=== PATIENT | female | born 1960 | race Caucasian/White ===

== ENCOUNTER 2017-09-12 09:02 | Outpatient (CLI) | payer OTHER | END 2017-09-12 09:03 | disposition home or self-care (01) | LOC: CTENTCT 09:02 | PROVIDERS: ATTEND Otolaryngology Plastic Surgery within the Head & Neck | DX: J32.9 Chronic sinusitis, unspecified (principal) | CPT/HCPCS: 70486 ==

== ENCOUNTER 2018-01-21 12:42 | Outpatient (CLI) | payer OTHER ==
--- NOTE | 2018-01-21 14:28 | RAD ---
CERVICAL SPINE THREE VIEWS: HISTORY: A 57-year-old female with a history of chronic pain syndrome. Prior neck surgery in 2013. Pain has gotten worse since surgery. FINDINGS: Anterior and posterior cervical fusion changes are noted from C5, C6, C7, and T1. No significant mal alignment. C2 odontoid and C1 are obscured on the AP open-mouth view. Some generalized changes of s pondylosis involving the nonsurgical segments. No prevertebral soft tissue swelling. IMPRESSION: Extensive anterior and posterior fusion changes involving C5 through T1, stable from prior study. POS: RHIANNON
== END 2018-01-21 12:43 | disposition home or self-care (01) ==
LOC: SCSRAD 12:42
PROVIDERS: ATTEND Psychiatry & Neurology Neurology
DX: G89.4 Chronic pain syndrome (principal); Z98.1 Arthrodesis status
CPT/HCPCS: 72040

== ENCOUNTER 2018-09-02 09:30 | Outpatient (CLI) | payer OTHER ==
--- NOTE | 2018-09-02 15:45 | MMO ---
BILATERAL SCREENING MAMMOGRAM: Date: 09/02/18 INDICATION: Annual exam. COMPARISON: Prior exam dated 02/28/16 and 05/03/14. FINDINGS: Interpretation of this exam was assisted with computer-aided detection. There are scattered fibroglandular elements bilaterally. There is a new cluster of calcifications seen within the 6 o'clock position of the right mid breast. No additional suspicious abnormality is seen. No suspicious abnormality seen within the left breast. IMPRESSION: BIRADS 0: Incomplete: Need Additional Imaging Evaluation and/or Prior Mammograms for Comparison There is a new cluster of calcifications seen within the right breast 6 o'clock position, mid breast, that require additional evaluation. Spot magnification compression views in the CC and MLO projectio n recommended. The facility will notify patient of need for additional imaging services. POS: SHERI
== END 2018-09-02 09:31 | disposition home or self-care (01) ==
LOC: SCSMAMMO 09:30
PROVIDERS: ATTEND Family Medicine
DX: Z12.31 Encounter for screening mammogram for malignant neoplasm of breast (principal)
CPT/HCPCS: 77067

== ENCOUNTER 2019-01-20 12:14 | Outpatient (CLI) | payer OTHER ==
--- NOTE | 2019-01-20 12:54 | RAD ---
CERVICAL SPINE SERIES FIVE VIEWS: 01/20/2019 HISTORY: Chronic neck pain. FINDINGS: There are extensive postoperative changes of the spine. There is an anterior plate and screws, which has been placed from C5 to T1. There are also bilateral facet screws at these levels. IMPRESSION: Postoperative changes of the spine. POS: [facility]
== END 2019-01-20 12:15 | disposition home or self-care (01) ==
LOC: SCSRAD 12:14
PROVIDERS: ATTEND Nurse Practitioner Acute Care
DX: G89.4 Chronic pain syndrome (principal); Z98.890 Other specified postprocedural states
CPT/HCPCS: 72050; 80307; 80326; 80331; 80334; 80337; 80341; 80344; 80346; 80348; 80353; 80354; 80355; 80357; 80358; 80359; 80360; 80361; 80364; 80365; 80366; 80367; 80368; 80370; 80371; 80372; 80377

== ENCOUNTER 2019-04-15 15:46 | Outpatient (CLI) | payer OTHER ==
--- NOTE | 2019-04-15 16:08 | RAD ---
XR Hip Rt 2-3 View: 04/15/2019 12:00 AM CLINICAL INDICATION: Pain of right hip COMPARISON: None. FINDINGS: Fracture:No fracture. Arthropathy:Mild to moderate osteoarthritis of right hip. Scattered degenerative change of the region al osseous structures. Incidental findings:Hardware of the lumbosacral spine IMPRESSION: 1. No acute osseous abnormality.
== END 2019-04-15 15:47 | disposition home or self-care (01) ==
LOC: SCSRAD 15:46
PROVIDERS: ATTEND Nurse Practitioner Acute Care
DX: M25.551 Pain in right hip (principal); G89.4 Chronic pain syndrome
CPT/HCPCS: 80307; 80326; 80331; 80334; 80337; 80341; 80344; 80346; 80348; 80353; 80354; 80355; 80357; 80358; 80359; 80360; 80361; 80364; 80365; 80366; 80367; 80368; 80370; 80371; 80372; 80377

== ENCOUNTER 2025-07-06 11:51 | Outpatient (CLI) | payer OTHER | END 2025-07-06 11:52 | disposition home or self-care (01) | LOC: SCSRAD 11:51 | PROVIDERS: ATTEND Family Medicine | DX: M25.551 Pain in right hip (principal); M16.11 Unilateral primary osteoarthritis, right hip ==

== ENCOUNTER → 2025-08-11 | Emergency (ER) | payer OTHER | LOC: ERS 10:55 | DX: R55 Syncope and collapse (principal); R11.10 Vomiting, unspecified; W17.89XA Other fall from one level to another, initial encounter; Z53.29 Procedure and treatment not carried out because of patient's decision for other reasons | CPT/HCPCS: 70450; 71045; 72125; 93005 ==